=== PATIENT | male | born 1955 | race American Indian/Alaskan Native ===

== ENCOUNTER → 2024-09-12 | Outpatient (CLI) | payer MEDICARE, OTHER, SELFPAY ==
--- NOTE | 2024-09-12 | XR_ITS ---
EXAMINATION: Ankle, right 3 views . Technique: Ankle AP, oblique, lateral 3 views Date and time of exam: September 12, 2024 10:43 AM INDICATIONS: Pain in the ankle beginning one year ago. FINDINGS: No fracture or dislocation. 10 mm plantar bony calcaneal spur. Mild osteoarthritis tibiotalar, subtalar and intertarsal joints IMPRESSION: Mild osteoarthritis 10 mm plantar bony calcaneal spur
--- NOTE | 2024-09-12 | XR_ITS ---
Examination: Foot, right, 3 views Technique: AP, oblique, lateral views foot, 3 views Date and time of exam: September 12, 2024 1143 hours INDICATIONS: Injury to the foot one year ago with persistent foot pain. FINDINGS: Mild to moderate osteoarthritis first metatarsophalangeal joint. No fracture. No cortical bone destruction 10 mm plantar bony calcaneal spur No cortical bone erosions IMPRESSION: Mild to moderate osteoarthritis first metatarsophalangeal joint 10 mm plantar bony calcaneal spur
== END | disposition home or self-care (01) ==
PROVIDERS: PCP Nurse Practitioner Family; Referring Provider Nurse Practitioner Family; Visit Provider Nurse Practitioner Family
DX: M19.071 Primary osteoarthritis, right ankle and foot (principal); M77.31 Calcaneal spur, right foot
CPT/HCPCS: 73610; 73630